=== PATIENT | male | born 1950 ===

== ENCOUNTER 2024-04-02 08:20 | Inpatient (IN) | payer OTHER ==
[2024-04-02 14:47] VITALS: BMI 35.6
[2024-04-02] MEDS ORDERED: HYDROCODONE/APAP 5/325 MG TAB PO PRN (16:37)
[2024-04-02] MEDS: INSULIN REGULAR (HUMAN) 100 UNIT/ML SQ SCH (17:09)
[2024-04-02] MEDS: PIPER TAZO 3.375 GM in NA CHLORIDE 0.9% 100 ML IV SCH (17:36)
[2024-04-02] MEDS: METFORMIN HCL 500 MG TAB PO SCH (17:36)
[2024-04-02] MEDS ORDERED: VANCOMYCIN 1.25 GM in NA CHLORIDE 0.9% 250 ML IVPB SCH (20:00)
[2024-04-02] MEDS: APIXABAN 2.5 MG TABLET PO SCH (21:17)
[2024-04-02] MEDS: DOCUSATE NA 100 MG CAP PO SCH (21:17)
[2024-04-02] MEDS: TRAZODONE 50 MG TABLET PO SCH (21:17)
[2024-04-02] MEDS: MEMANTINE HCL 10 MG TABLET PO SCH (21:17)
[2024-04-02] MEDS: CYCLOBENZAPRINE 10 MG TAB PO SCH (21:17)
[2024-04-02] MEDS: VANCOMYCIN 2 GM in NA CHLORIDE 0.9% 500 ML IVPB ONE (21:19)
[2024-04-02] MEDS ORDERED: TRAMADOL HCL 50 MG TAB PO PRN (22:20)
--- NOTE | 2024-04-03 02:21 | HP ---
Date of Admission: 04/02/2024 Time Of Service: 1:10 p.m. History Of Present Illness: Mr. Andresw is a 73-year-old patient with hypertension, diabetes mellitus, Alzheimer's dementia with sundowning, and extensive back surgery done 6 years ago with hardware in p lace. The patient resides in a trailer with his ex- and next door to his son and daughter. He w as seen at [facility] on March 27 with scrotal and perineal pain, diagnosed with scrotal cellulitis, but he refused admission. He went home and returned on 29 of March with worsening pain, bleedin g, and unable to sit up. He agreed to be admitted at that point and had a workup which showed a scro hua ultrasound and CT scan of the abdomen and pelvis revealing benign testicular cysts requiring no f urther workup. Also bilateral hydroceles and right-sided varicocele. CT scan showed skin thickening of the scrotum, but no fluid collection or soft tissue gas. No further acute findings identified. MRI was recommended and it revealed lesions of the tail of the pancreas. [facility]. He received IV antibiotics and fluid hydration, warm compress to the wound area, topicals as well. Of course, there is chronic back pain with hardware in place. Did have lidocaine patches, Rosalind ebrex, renal monitoring as it is addressed. The patient did have increased creatinine as noted. He has diuretics adjusted and a trial of nitrate for blood pressure control. He was treated with metfor min for diabetes mellitus, had blood glucose check a.c. h.s., did have sundowning related to his samantha ntia due to Alzheimer's disease, treated with Lexapro. He was evaluated by Physical Therapy Service, but has found that he had really significant decline in his mobility and physical functioning and re quired minimum assistance for [id number] for ambulation of short distances. He had decreased core strength for transfers and is unable to just go up and down few steps, which he is required to do at home. Prior to the patient's hospitalization, he was independent ambulating with a single prong cane at home without any significant difficulty. He and his family did agree that inpatient rehabilitati on would be very helpful as if he is to be discharged home, chances are to worsen and not improve wel l and going to prison, he is not going to receive the therapy which will help him to return to his prior level of functioning and reduce risk of rehospitalization. Furthermore, his comorbid co nditions need to be addressed including renal insufficiency, issues of potential pneumonia and infect ion, cellulitis in the perineal region. Also he will benefit from speech therapy for cognitive funct ioning to address his Alzheimer's dementia and sundowning. Past Medical History: As noted above. Past Surgical History: Multiple back surgeries and hardware placed in addition to the medical issues of sundowning, diabetes mellitus, hypertension. Allergies: GABAPENTIN. Medications: Norvasc 5 mg daily, Eliquis 2.5 mg twice daily, aspirin 81 mg daily, Celexa 20 mg daily , Flexeril 10 mg at bedtime, Colace 100 mg twice daily, Lexapro 10 mg daily, Tricor 160 mg daily, Nor co 5/325 every 12 hours as needed, Namenda 10 mg twice daily, metformin 500 mg twice daily, Toprol 25 mg daily, piperacillin and tazobactam which he is receiving antibiotics for his cellulitis 3.375 mg every 8 hours, trazodone 100 mg at bedtime, he is on vancomycin 1.25 g IV solution every 12 hours, he did receive a loading 1 dose of vancomycin 2 g. Family History: Noncontributory. Social History: The patient lives in a single family home with his ex- and son and udqvshvs-xj-j aw are very close by. No recent alcohol, tobacco, or IV drug use. Family History: Noncontributory. Laboratory Studies: White blood cell count 5.8, hemoglobin 13.9, hematocrit 42.9, platelets 185, pot assium 4.0, sodium 142, calcium 9.1, creatinine 0.98, BUN 17, glucose 143, potassium 4.0. Physical Examination: Vital Signs: Blood pressure 144/70, pulse 80, respiratory rate 18, temperature 97.4, oxygen saturati on 99%. General: Mr. Andrews is getting settled in, brought in by gurney by EMS. He does appear to be obese w ith BMI of 35.6, weight 285 pounds, height 6 feet 3 inches. HEENT: He is however otherwise normocephalic, atraumatic. Sclerae anicteric. Oropharynx pink and m oist. Extremities: Does have scrotal swelling and edema and redness as noted. Mild edema in the lower ext remities. Neurological: He is diffusely weak in lower extremities. There are no focal deficits. He is able t o do a [id number] with min to contact guard assistance and he was able to get onto bed as he transf ers from the rlovilia. Rehab And Medical Assessment And Plan: Mr. Andrews is a 73-year-old patient, [facility] with impairment category 20, miscellaneous. Impairment group code is 16, debility. Etiol ogic diagnosis, cellulitis of the scrotum. His comorbid conditions include decreased mobility, decre ased physical functioning, significant scrotal pain, hypertension, deep vein thrombosis risk and stro ke risk. He is on Eliquis and aspirin for that, he has Celebrex to reduce pain, he has Flexeril for muscle spasms, TriCor for his cholesterol control, metformin for diabetes mellitus, Namenda for demen tia, Toprol for heart rate control. He has piperacillin and tazobactam and vancomycin for the cellul itis. He will have physical, occupational, and speech therapy. In terms of his plan, he will continue with comorbid condition medications as noted and DVT prophylaxis again continued. Fall risk assessed, wh ere he will have if need be a chair alarm, bed alarm. He is impulsive. He is right at the nurse's s tation. It is noted that he does have sundowning and that will be carefully watched for as he has ar rived at the nurse's station. Comorbidities That Are Impacting Rehabilitation: As noted, the patient is noted to have sundowning a nd he is on medication that may be helpful. Again, right at the nurse's station, bed alarm and chair alarm in place to reduce his risk of being out of bed unassisted and falling. His scrotal edema and cellulitis aggressively treated with multiple IV antibiotics. His white blood cell count will be fo llowed. The risk of a superinfection will be considered and adjustments of medication dosages and th e type of antibiotic may be adjusted as appropriate. He does have multiple pain medications on board . He does have medication to help with sleep. His pain medications may cause constipation and that will be addressed as appropriate. Rehab Specific Plan: 1. Mr. Andrews will have physical, occupational, and speech therapy for 3.5 hours, 5 of 7 days, to impr ove his ability to transfer from a bed to a chair, to a wheelchair, to a rolling walker, on and off t he toilet, in and out of shower. Therapy will help with his upper and lower body dressing, donning a nd doffing footwear. 2. Speech will help with safety awareness, cognition, and help him to make good decisions and follow instructions appropriately and communicate more effectively as well as to clear him for any risk of a spiration pneumonia. Mr. Andrews has a good understanding of the process of admission to the inpatient rehabilitation unit a nd how he will benefit from physical, occupational, and speech therapy. He will have 24 hours a day, 7 days a week, skilled rehabilitation and nursing, daily physician evaluation and management, and so [facility] evaluation and management for discharge planning, home equipment, and to continue with therapy. If need be, additional help will be sought from the Hospitalist Service. Barriers To Discharge: As noted, Mr. Andrews has the issue of sundowning and at 1 point, he did not wa nt to go into hospital and have his issue addressed. However, the pain likely was a factor. His marcy n will be addressed carefully and to help him do well. He will be encouraged to work with therapy, b ut if he is unable to be safe at home, he may have to spend an extended time at prison. How ever, the plan is for him to return home with therapy and with the help of his family, he has son and daughter live nearby. He lives with his ex-. Length Of Stay: About 10 days. Disposition: Expected to be back in the patient's regular home where he will continue with therapy w ith the help of his children. Prognosis: He has a good prognosis. Code Status: Full code. Rehab Specific Goals: 1. Become independent with upper and lower body dressing and donning and doffing footwear. 2. Independently mobilize a wheelchair 250 feet and ambulate with a rolling walker 250 feet and go up and down 10 steps with bilateral handrails independently. 3. Independently perform cognitive functioning, safety awareness as well, again all activities of tory ly living to be performed independently. The above goals were reviewed with Mr. Andrews and he is in agreement. By signing this document, I acknowledge I personally performed a full physical examination on Mr. Joseph al no later than 24 hours after his admission to the inpatient rehabilitation unit and determined lluvia t he is able to tolerate the above course of treatment at an intensive level for a reasonable period of time. A detailed individualized plan of care for him will be completed by hospital day 4 based on the preadmission screen, history and phy sical, and therapy evaluations. GARDENIA Voice ID: [id number]
[2024-04-03 02:54] LABS: Calcium Oxalate Crystals- Ur Few /HPF (None Seen); Specific Gravity > 1.030 (1.005-1.030); Sqamous Epithelial None Seen /HPF (None Seen); Urine Bacteria None Seen /HPF (<20); Urine Bilirubin NEGATIVE (Negative); Urine Blood Negative (Negative); Urine Clarity Clear (Clear); Urine Color Yellow (Yellow); Urine Culture Reflex Order NOT NEEDED; Urine Glucose NEGATIVE (Negative); Urine Ketones TRACE (Negative); Urine Micro Reflex YN NO BILL MICROSCOPIC; Urine Mucus Slight /HPF (None Seen); Urine Nitrite NEGATIVE (Negative); Urine Protein TRACE (Negative); Urine Urobilinogen Normal (Normal); Urine WBC <5 /HPF (<5)
[2024-04-03] MEDS ORDERED: METOPROLOL XL 25 MG TAB PO SCH (06:00)
[2024-04-03 06:36] LABS: Absolute Basophils 0.1 K/uL (0-0.5); Absolute Eosinophils 0.2 K/uL (0-0.5); Absolute Lymphocytes (CBC) 2.4 K/uL (0.7-4.9); Absolute Monocytes 0.5 K/uL (0.1-1.3); Absolute Neutrophil 3.3 K/uL (1.8-8.0); Basophils % 1.3 % (0-1.3); Eosinophils % 3.2 % (0-4.4); Hematocrit 39.3 % (39.6-49.0); Hemoglobin 13.8 g/dL (13.6-17.9); Lymphocytes % 36.4 % (15.3-44.8); MCH 28.4 pg (27.0-35.0); MPV 7.3 fL (7.6-11.3); Monocytes % 7.4 % (3.3-12.3); Neutrophils % 51.7 % (41.7-73.7); Nucleated Red Blood Cells % 0.1 % (0-0); Platelets 196 thou/uL (152-406); RBC Red Blood Cell Count 4.84 M/uL (4.33-5.43); Red Cell Distribution Width 16.5 % (12.1-15.2)
[2024-04-03 06:49] LABS: Albumin 3.2 g/dL (3.4-5.0); Anion Gap 5.4 mEq/L (5.0-15.0); Magnesium 2.2 mg/dL (1.6-2.4); Potassium 4.4 mEq/L (3.5-5.1); Prealbumin 22.5 mg/dL (20-40)
[2024-04-03] MEDS: ASPIRIN 81 MG CHEWABLE TABLET PO SCH (08:12)
[2024-04-03] MEDS: CELECOXIB 100 MG CAPSULE PO SCH (08:12)
[2024-04-03] MEDS: AMLODIPINE 5 MG TAB PO SCH (08:12)
[2024-04-03] MEDS: FENOFIBRATE 160 MG TAB PO SCH (08:13)
[2024-04-03] MEDS: METOPROLOL XL 25 MG TAB PO SCH (08:13)
[2024-04-03] MEDS: ESCITALOPRAM 20 MG TAB PO SCH (08:13)
[2024-04-03] MEDS: VANCOMYCIN 2 GM in NA CHLORIDE 0.9% 500 ML IVPB SCH (10:00)
[2024-04-03] MEDS: VANCOMYCIN 1.25 GM in NA CHLORIDE 0.9% 250 ML IVPB SCH (12:15)
--- NOTE | 2024-04-03 13:51 | P.RH.PN ---
Estimated Length of Stay: 9 Expected Discharge Date: 04/09/24 Discharge Disposition Plan: Home Family Support: Yes [employer] Goal: Mobility, Transfers, Self Care Vital Signs: Last Vital Signs Temp 97.7 F 04/03/24 07:21 Pulse 77 04/03/24 08:13 Resp 18 04/03/24 07:21 BP 163/80 H 04/03/24 08:13 Pulse Ox 96 04/03/24 07:21 Laboratory: Laboratory Last Values WBC 6.50 thou/uL (4.3-10.9) 04/03/24 06:13 RBC 4.84 M/uL (4.33-5.43) 04/03/24 06:13 Hgb 13.8 g/dL (13.6-17.9) 04/03/24 06:13 Hct 39.3 % (39.6-49.0) L 04/03/24 06:13 MCV 81.0 fL (80-100) 04/03/24 06:13 MCH 28.4 pg (27.0-35.0) 04/03/24 06:13 MCHC 35.0 g/dL (32.0-36.0) 04/03/24 06:13 RDW 16.5 % (12.1-15.2) H 04/03/24 06:13 Plt Count 196 thou/uL (152-406) 04/03/24 06:13 MPV 7.3 fL (7.6-11.3) L 04/03/24 06:13 Neutrophils % 51.7 % (41.7-73.7) 04/03/24 06:13 Lymphocytes % 36.4 % (15.3-44.8) 04/03/24 06:13 Monocytes % 7.4 % (3.3-12.3) 04/03/24 06:13 Eosinophils % 3.2 % (0-4.4) 04/03/24 06:13 Basophils % 1.3 % (0-1.3) 04/03/24 06:13 Absolute Neutrophils 3.3 K/uL (1.8-8.0) 04/03/24 06:13 Absolute Lymphocytes 2.4 K/uL (0.7-4.9) 04/03/24 06:13 Absolute Monocytes 0.5 K/uL (0.1-1.3) 04/03/24 06:13 Absolute Eosinophils 0.2 K/uL (0-0.5) 04/03/24 06:13 Absolute Basophils 0.1 K/uL (0-0.5) 04/03/24 06:13 Sodium 143 mEq/L (136-145) 04/03/24 06:13 Potassium 4.4 mEq/L (3.5-5.1) 04/03/24 06:13 Chloride 111 mEq/L (98-107) H 04/03/24 06:13 Carbon Dioxide 31 mEq/L (21-32) 04/03/24 06:13 Anion Gap 5.4 mEq/L (5.0-15.0) 04/03/24 06:13 BUN 19 mg/dL (7-18) H 04/03/24 06:13 Creatinine 1.05 mg/dL (0.70-1.30) 04/03/24 06:13 Est GFR (CKD-EPI) 75 ml/min (=/>90) L 04/03/24 06:13 Glucose 147 mg/dL (74-106) H 04/03/24 06:13 POC Glucose 103 mg/dL (65-120) 04/03/24 11:23 Hemoglobin A1c 6.6 % (4.2-6.3) H 04/03/24 06:13 Calcium 9.0 mg/dL (8.5-10.1) 04/03/24 06:13 Magnesium 2.2 mg/dL (1.6-2.4) 04/03/24 06:13 Albumin 3.2 g/dL (3.4-5.0) L 04/03/24 06:13 Prealbumin 22.5 mg/dL (20-40) 04/03/24 06:13 Urine Color Yellow (Yellow) 04/03/24 02:25 Urine Clarity Clear (Clear) 04/03/24 02:25 Urine pH 6.0 (5.0-7.0) 04/03/24 02:25 Ur Specific [place] > 1.030 (1.005-1.030) H 04/03/24 02:25 Glucose (UA)(Auto) Negative (Negative) 04/03/24 02:25 Urine Ketones Trace (Negative) H 04/03/24 02:25 Urine Blood Negative (Negative) 04/03/24 02:25 Urine Nitrite Negative (Negative) 04/03/24 02:25 Urine Bilirubin Negative (Negative) 04/03/24 02:25 Urine Urobilinogen Normal (Normal) 04/03/24 02:25 Ur Leukocyte Esterase Negative Valentina/uL (Negative) 04/03/24 02:25 Urine RBC 5-10 /HPF (None Seen) H 04/03/24 02:25 Urine WBC <5 /HPF (<5) 04/03/24 02:25 Ur Squamous Epith Cells None seen /HPF (None Seen) 04/03/24 02:25 U Non-Squamous Epi Cells <5 /HPF (None Seen) 04/03/24 02:25 Calcium Oxalate Crystal Few /HPF (None Seen) 04/03/24 02:25 Urine Bacteria None seen /HPF (<20) 04/03/24 02:25 Urine Mucus Slight /HPF (None Seen) 04/03/24 02:25 Urine Culture Reflexed Not needed 04/03/24 02:25 Urine Total Protein Trace (Negative) H 04/03/24 02:25 Weight: 285 lb Physician Update: Labs reviewed with fair control. His WBC is normal. He is on two IV antibiotics. Will ask ID to help with recommendation. SLUMS 5. Walking 250 with single prong cane. Up and down 20 steps with supervision. Life alert should be used. Summary: Patient's care plan and half-way goals have been reviewed and revised as necessary. Please see the Rehabilitation Signature page for all necessary signatures.
--- NOTE | 2024-04-03 16:42 | RAD REPORT ---
Procedure: Chest Single View HISTORY: Cough COMPARISON: 2007 FINDINGS: The lungs appear clear of acute infiltrate. Calcified granuloma right lung No significant pleural effusion noted. The heart is mildly enlarged. IMPRESSION: No acute abnormality is displayed.
--- NOTE | 2024-04-04 14:57 | CON ---
History Of Present Illness: This is a 73-year-old male I was consulted for cellulitis of the perinea l area. The patient has significant past medical history of hypertension, diabetes mellitus, Alzheim er dementia, and with extensive back surgery 6 years ago, hardware placement. The patient is currently on IV vancomycin and Zosyn. Denies any fever, nausea, vomiting, diarrhea, or constipat ion. The patient had a CT scan done prior to admission, which showed some skin thickening of the scr otal area, but no fluid collection or soft tissue gas. Past Medical History: As per HPI. Social History: Nonsmoker, nondrinker. Family History: Noncontributory. Medications: Vancomycin and Zosyn. See MARS for other medications. Allergies: NO KNOWN DRUG ALLERGIES EXCEPT GABAPENTIN. Review of Systems: A 10-point review was performed. Physical Examination: General: This is a 73-year-old male, not in any acute cardiopulmonary distress. Vital Signs: Temperature 98, pulse 64, respirations 18, blood pressure 167/81. HEENT: Unremarkable. Neck: Supple. Lungs, Chest, Abdomen: Exam within normal limits. Skin: Examination of perineal area shows a small area of erythematous change and swelling and edema with slight increased warmth. Otherwise, scrotal area shows no signs of any active infection. Extremities: 1+ edema with erythematous changes noted above the ankle region. Lab Data: WBC 6.5, hemoglobin 13.8, platelets 196. Chemistry shows BUN of 19, creatinine 1.05. Alb umin level is 3.2. Micro data, urine cultures are pending. Assessment And Plan: Perineal area cellulitis, most likely secondary to abraded skin which might hav e initiated the infection. As the patient has improved significantly, we will discontinue IV vancomy cabrera and Zosyn and start the patient on Bactrim DS 1 tablet twice a day for 7 days. Get a CBC and BMP on Saturday and while the patient is on antibiotic to monitor kidney function and platelets. Consider probiotic if the patient starts to develop diarrhea. Otherwise, continue nutritional suppo rt as the patient's albumin level is 3.2 showing moderate protein-calorie malnourishment. Diabetes m ellitus. No other recommendation at this time. Continue to monitor for signs of infection with WBC and fever trends. Thank you for consult. NF/MODL Voice ID: [id number] Report ID: [id number]
[2024-04-04] MEDS ORDERED: VANCOMYCIN 1.25 GM in NA CHLORIDE 0.9% 250 ML IVPB SCH (15:00)
[2024-04-04] MEDS: SILVER SULFADIAZINE 1% 50 GM TOP SCH (19:34)
[2024-04-04] MEDS: SMZ./TMP. 800/160 MG TABLET PO SCH (19:35)
[2024-04-06 06:28] LABS: Absolute Basophils 0.1 K/uL (0-0.5); Absolute Eosinophils 0.2 K/uL (0-0.5); Absolute Lymphocytes (CBC) 2.4 K/uL (0.7-4.9); Absolute Monocytes 0.4 K/uL (0.1-1.3); Absolute Neutrophil 3.9 K/uL (1.8-8.0); Basophils % 1.2 % (0-1.3); Eosinophils % 2.7 % (0-4.4); Hematocrit 40.8 % (39.6-49.0); Hemoglobin 13.9 g/dL (13.6-17.9); Lymphocytes % 34.7 % (15.3-44.8); MCH 28.1 pg (27.0-35.0); MCV 82.5 fL (80-100); Monocytes % 5.9 % (3.3-12.3); Neutrophils % 55.5 % (41.7-73.7); Nucleated Red Blood Cells % 0.3 % (0-0); Platelets 212 thou/uL (152-406); RBC Red Blood Cell Count 4.94 M/uL (4.33-5.43); Red Cell Distribution Width 16.1 % (12.1-15.2)
[2024-04-06 06:43] LABS: Anion Gap 7.6 mEq/L (5.0-15.0); Potassium 4.6 mEq/L (3.5-5.1)
--- NOTE | 2024-04-06 16:54 | PN ---
Subjective: The patient is sitting in wheelchair not in any acute distress. Denies any headache, na usea, vomiting, chest pain, abdominal pain, constipation, or diarrhea. Objective: Vital Signs: Temperature 97, pulse 78, respirations 16, blood pressure 134/67. Lungs: Basal crackles. Heart: S1, S2. Regular. Abdomen: Soft, nontender. Bowel sounds present. Extremity: Trace edema. Laboratory Data: Shows WBC 7, hemoglobin 13, platelets are 212. Chemistry shows BUN of 22, creatini ne 1.07. Assessment And Plan: Perineal area cellulitis and excoriation. Continue oral antibiotic with Bactri m DS. Monitor blood count and platelets. Monitor kidney function. We will follow the patient close ly. No other recommendation at this time. NF/MODL Voice ID: [id number] Report ID: [id number]
[2024-04-06] MEDS: HYDROCODONE/APAP 5/325 MG TAB PO PRN (17:15)
--- NOTE | 2024-04-07 01:23 | PN ---
Date of Progress Note: 04/06/2024 Subjective: Mr. Andrews is feeling better today. Still has some pain in the scrotal area and reports some pain in the lower back, where he has had extensive laminectomy from around T4 down towards the l ower lumbar levels. It is somewhat spasmodic and the patient will have a lidocaine patch placed. Objective: Again, some mild pain in the lower back. No other complaints such as nausea, vomiting, m yalgias, arthralgias. The scrotal pain is improving where he has cellulitis. He was seen today by Anushka Alfredo who is assisting with management of his infectious disease. He did mention to continue wit h Bactrim DS and no other recommendations is noted. His plan was to discontinue the vancomycin and Z osyn and again just continue with Bactrim. Physical Examination: Vital Signs: Blood pressure 126/58, pulse 66, respiratory rate 18, temperature 98.3, oxygen saturati on 96%. General: Mr. Andrews is sitting in chair in between therapy sessions. HEENT: He is normocephalic, atraumatic. Sclerae anicteric. Oropharynx pink, moist. Neck: Supple. Scrotal area is showing much less redness. He is doing very well. Laboratory Studies: White blood cell count 7.0, hemoglobin 14.8, platelets 212. Sodium 140, potassi um 4.6, chloride 108, carbon dioxide 29, BUN 22, creatinine 1.07, glucose ranged from 92 to 139, calc ium 9.1. His vancomycin trough on the 8th was 19.2. X-ray/imaging: No new x-rays or imaging. Progress Made With Physical, Occupational, And Speech Therapy: With physical therapy today, he did a mbulate 600 feet with a single prong cane and another 700 feet and 400 feet all with standby assistan rohit. He was able to go up and down 20 steps using a 1-sided handrail and a single prong cane. Sit-to -stand transfers done independently. With occupational therapy, he agreed to do the shower in the mo rning. Did dynamic standing balance in the parallel bars with standby assistance. Also supervision for functional mobility. With speech, able to do temporal orientation tasks with visual aid with 80% accuracy and moderate assistance. Naming skills were at 70% accuracy with moderate assistance. Mr. Andrews is a 73-year-old patient in the rehabilitation unit with cellulitis of the scrotum, is now on oral antibiotics after help from Dr. Alfredo on ID Service much appreciated. His therapy is doing well with mobilization very well, transfers well, also working well with speech and cognition. Assessment And Plan: Mr. Andrews is a 73-year-old patient in the rehabilitation unit with cellulitis o f the scrotum. He has decreased mobility, decreased physical functioning. He has chronic low back p ain. He will have a pain patch placed. He has hypertension, depression, diabetes mellitus, and cell ulitis of the scrotum as noted. Medications will be continued for that and he will have physical, oc cupational, and speech therapy continued 3 days [address] week and Dr[address] Alfredo's orders are being carried out. CHAPARRITA/CHARI Voice ID: [id number] Report ID: [id number]
[2024-04-07] MEDS: LIDOCAINE 4% PATCH TOP SCH (07:04)
--- NOTE | 2024-04-07 13:43 | PN ---
Subjective: Patient sitting in wheelchair. Denies any headache, nausea, vomiting, chest pain, abdom inal pain, constipation, or diarrhea. Objective: Vital Signs: Reviewed. Lungs: Clear to auscultation. Heart: S1, S2. Regular. Abdomen: Soft, nontender. Bowel sounds present. Extremities: Trace edema. Laboratory Data: Reviewed. Assessment And Plan: Perineal cellulitis, improving. Patient tolerating antibiotic well. Continue to monitor signs of infection with WBC and fever trends. We will sign off on this patient. If nece ssary, please recall us to re-evaluate the patient. NF/MODL Voice ID: [id number] Report ID: [id number]
--- NOTE | 2024-04-07 21:39 | PN ---
Date of Progress Note: 04/07/2024 Time Of Service: 1:20 p.m. Subjective: Mr. Andrews is sitting in a chair working with speech pathologist, doing much better. Den ies any significant scrotal pain at this point. His antibiotics are now oral per Dr. Alfredo. He is happy with that Review of Systems: No significant issues such as pain, fevers, or chills. No myalgias, arthralgias. Doing very well. Physical Examination: Vital Signs: Blood pressure is 144/64, pulse 63, respiratory rate 17, temperature 97.8, oxygen satur ation 98%. General: Ervin Andrews is sitting in a chair beside his bed with speech pathology working with him. HEENT: Appears normocephalic, atraumatic. Sclerae anicteric. Oropharynx pink and moist. Neck: Supple. Chest: Clear. : No reported worsening, actually much improvement in his scrotal redness and irritation, not both ering him at this point. Laboratory Studies: Blood sugars ranged from 98 to 144. X-ray/imaging: No new x-rays or imaging. Medications: Medications have been reviewed and are unchanged. He is managed by Dr. Alfredo and he d id give recommendations. The patient does have lidocaine patch applied to pruritic area. In [facility], he is now on Bactrim DS, will complete 5 days, 1 tablet twice daily starting to 04/04/2024. He rader s DVT prophylaxis. He has Norvasc and metoprolol for blood pressure control and tramadol for pain. Topical Silvadene apply to scrotal area daily, Namenda for cognitive impairment, Lexapro for depression, Flexeril for muscle spasms, aspirin for stroke risk reduction. LB/MODL Voice ID: [id number] Report ID: [id number]
--- NOTE | 2024-04-09 00:44 | PN ---
Date of Progress Note: 04/08/2024 Time Of Service: 1:25 p.m. Subjective: Mr. Andrews is sitting in a chair beside the bed. He is very happy with his therapy. No significant scrotal pain. No other issues or complaints. Objective: No fevers, chills, nausea, vomiting, myalgias, arthralgias. Physical Examination: Vital Signs: Blood pressure is 152/70, pulse 72, respiratory rate 17, temperature 97.1, oxygen satur ation 98%. General: Again, he is doing well. HEENT: He is normocephalic, atraumatic. Sclerae anicteric. Oropharynx pink and moist. Neck: Supple. Chest: Clear. Genitourinary: No significant issues in terms of the scrotal area of cellulitis. No swelling. No p ain. No significant redness. Laboratory Studies: Blood sugars ranged from 108 to 137. X-ray/imaging: No new x-rays or imaging. He is followed by Dr. Alfredo, again who is managing the antibiotic use. [facility] Plan for him is to follow up with his primary care physician, and he is doing ex cellent. Progress Made With Physical, Occupational, And Speech Therapy: With physical therapy today, he was a ble to ambulate with a single prong cane 750 feet and 400 feet twice independently. He was up and do wn 22 steps independently with one-sided handrail and a single prong cane. [id number] transfers do ne independently. With his occupational therapy, independent with again sit to stand transfers. Ind ependent with going from the gym to the room. He walks 500 feet with a single prong cane, short step s and is doing excellent, independent with those activities. With speech, the SLUMS score was the sa me as at the time of admission, 5/30 indicating severe cognitive impairment. BIMS score 7/15. Recom mended the patient to continue with speech therapy when he leaves. Assessment: Mr. Andrews is a 73-year-old patient with cellulitis of the scrotum. He has significant c ognitive impairment, decreased mobility, decreased physical functioning, muscle spasms, depression, d yslipidemia, dementia, diabetes mellitus, hypertension and is continuing oral antibiotics. Plan: We will continue with physical, occupational, and speech therapy until he is discharged. We w ill continue with antibiotics and then his IV lines will be removed before discharge. He will follow up with his primary care physician and will have therapy via outpatient physical therapy, especially when good transportation is available. Still needs speech because of cognitive impairment. CHAPARRITA/CHARI Voice ID: [id number] Report ID: [id number]
[2024-04-09 06:26] LABS: Absolute Basophils 0.1 K/uL (0-0.5); Absolute Eosinophils 0.2 K/uL (0-0.5); Absolute Lymphocytes (CBC) 2.3 K/uL (0.7-4.9); Absolute Monocytes 0.4 K/uL (0.1-1.3); Basophils % 0.7 % (0-1.3); Hematocrit 40.7 % (39.6-49.0); Lymphocytes % 33.2 % (15.3-44.8); MCH 28.3 pg (27.0-35.0); MCHC 34.3 g/dL (32.0-36.0); MCV 82.6 fL (80-100); MPV 7.4 fL (7.6-11.3); Monocytes % 5.7 % (3.3-12.3); Neutrophils % 57.4 % (41.7-73.7); Nucleated Red Blood Cells % 0.1 % (0-0); Platelets 202 thou/uL (152-406); RBC Red Blood Cell Count 4.93 M/uL (4.33-5.43); Red Cell Distribution Width 16.9 % (12.1-15.2)
[2024-04-09 07:34] VITALS: BP 143/66; TEMP 97.6
[2024-04-09 10:01] LABS: Albumin 3.6 g/dL (3.4-5.0); Anion Gap 7.5 mEq/L (5.0-15.0); Magnesium 2.1 mg/dL (1.6-2.4); Potassium 4.5 mEq/L (3.5-5.1); Prealbumin 27.5 mg/dL (20-40)
== END 2024-04-09 10:00 | disposition home health service (06) | DRG 728 ==
LOC: 5TH 13:30
PROVIDERS: ADMIT Psychiatry & Neurology Neurology with Special Qualifications in Child Neurology; ATTEND Psychiatry & Neurology Neurology with Special Qualifications in Child Neurology
DX: N49.2 Inflammatory disorders of scrotum (principal); F05 Delirium due to known physiological condition; L03.315 Cellulitis of perineum; R53.81 Other malaise; I10 Essential (primary) hypertension; E11.9 Type 2 diabetes mellitus without complications; G30.9 Alzheimer's disease, unspecified; F02.80 Dementia in other diseases classified elsewhere, unspecified severity, without behavioral disturbance, psychotic disturbance, mood disturbance, and anxiety; N43.3 Hydrocele, unspecified; I86.1 Scrotal varices; K59.00 Constipation, unspecified
CPT/HCPCS: 36415; 71045; 80048; 80202; 81001; 82040; 82947; 83036; 83605; 83735; 84134; 84145; 85025; 87086; 87088; 92523; 97110; 97112; 97116; 97129; 97163; 97165; 97530; 97542; J2003; J2543; J7040; J7050